=== PATIENT | female | born 1975 | race Caucasian/White ===

== ENCOUNTER 2019-09-18 11:42 | Emergency (ER) | payer OTHER ==
[~2019-09-18] VITALS: Ht 162.6 cm; Wt 95.3 kg
[~2019-09-18 11:42] MED LIST: CLEOCIN HCL300 MG PO; FIORICET 50-321 EACH PO; GLUCOPHAGE500 MG; PERCOCET 5-3251 EACH PO; TRAMADOL 50 MG50 MG PO; VALTREX 500 MG500 M1; ZIAC 10/6.25 MG10 MG PO
[2019-09-18] MEDS ORDERED: TYLENOL WITH CO1 TA1 PO (12:37)
[2019-09-18] MEDS ORDERED: DOXYCYCLINE 10100 MG PO (12:37)
[2019-09-18] MEDS ORDERED: [UNRECOGNIZED DRUG - OTHER] MISCELL (12:40)
[2019-09-18 13:00] VITALS: BP 154/90
== END 2019-09-18 13:00 | disposition home or self-care (01) ==
LOC: M.ERS 11:42
DX: E11.41 Type 2 diabetes mellitus with diabetic mononeuropathy (principal); E11.65 Type 2 diabetes mellitus with hyperglycemia; B35.3 Tinea pedis; J06.9 Acute upper respiratory infection, unspecified